=== PATIENT | male | born 1970 | race Caucasian/White ===

== ENCOUNTER → 2018-02-16 | Outpatient (CLI) | payer BC ==
[~2018-02-16] MED LIST: BENICAR; FLEXERIL 1010 MG/TAB PO; LIPITOR 10MG10 MG; LORTAB 5/500 501 TAB; NEXIUM PO; NIASPAN 500MG500 MG; PERCOCET 325 MG1 TA2 PO; ROBAXIN500 MG PO; ZYLOPRIM 100MG100 MG PO
== END ==
LOC: COL.VAS 10:34
DX: E04.9 Nontoxic goiter, unspecified (principal); R42 Dizziness and giddiness

== ENCOUNTER → 2018-07-18 | Outpatient (CLI) | payer BC | LOC: COL.RAD 11:41 | DX: E07.89 Other specified disorders of thyroid (principal); R13.19 Other dysphagia; Z90.89 Acquired absence of other organs ==

== ENCOUNTER 2021-02-19 11:15 | Emergency (ER) | payer BC ==
[~2021-02-19] VITALS: Ht 185.4 cm; Wt 120.5 kg
[2021-02-19 12:31] LABS: BASO % 0.2 % (0.0-2.0); EOS % 0.5 % (0.0-4.0); GRAN # 2.6 K/mm3 (1.4-6.5); GRAN % 65.3 % (42.2-75.2); HEMATOCRIT 39.7 % (42.0-52.0); HEMOGLOBIN 12.9 g/dl (13.5-18.0); LYMPH # 1.1 K/mm3 (1.2-3.4); LYMPH % 25.9 % (20.0-51.0); MEAN CELL VOLUME 81 fl (80.0-100.0); MEAN CORPUSCULAR HEMOGLOBIN 26 pg (27-31); MEAN CORPUSCULAR HGB CONC 33 g/dl (33.0-37.0); MEAN PLATELET VOLUME 10.3 fl (7.4-10.4); MONO # 0.3 K/mm3 (0.1-0.6); MONO % 7.9 % (1.7-9.3); PLATELET COUNT 123 K/mm3 (130-400); RED BLOOD COUNT 4.93 M/mm3 (4.20-5.60); REDCELL DISTRIBUTION WIDTH-CV 13.1 % (11.5-14.5)
[2021-02-19 12:42] LABS: ALBUMIN 3.7 gm/dL (3.5-5.0); BILIRUBIN,TOTAL 0.5 mg/dL (0.2-1.2); CALCIUM 9.1 mg/dL (8.4-10.2); CREATININE, serum 0.93 mg/dL (0.72-1.25); POTASSIUM 3.9 mmol/L (3.5-4.5); TOTAL PROTEIN 7.3 gm/dL (6.2-8.1)
[2021-02-19 15:20] VITALS: BP 129/88; PULSE 99
== END 2021-02-19 15:30 | disposition home or self-care (01) ==
LOC: COL.ER 11:15
PROVIDERS: Nurse Practitioner Family
DX: U07.1 COVID-19 (principal); J12.82 Pneumonia due to coronavirus disease 2019; I10 Essential (primary) hypertension; E78.5 Hyperlipidemia, unspecified; K21.9 Gastro-esophageal reflux disease without esophagitis; F17.220 Nicotine dependence, chewing tobacco, uncomplicated; Z79.899 Other long term (current) drug therapy
CPT/HCPCS: J7030; Q9967

== ENCOUNTER 2022-03-27 05:51 | Day surgery (SDC) | payer BC ==
[~2022-03-27] VITALS: Ht 185.4 cm; Wt 120.0 kg
[2022-03-27 06:30] VITALS: BP 129/92; PULSE 73; TEMP 98.4
[2022-03-27] MEDS ORDERED: NEXIUM 40MG40 MG PO (06:47)
[2022-03-27] MEDS ORDERED: BENICAR40 MG PO (06:47)
[2022-03-27] MEDS ORDERED: ULORIC40 MG PO (06:48)
[2022-03-27] MEDS ORDERED: BYSTOLIC10 MG PO (06:49)
[2022-03-27] MEDS ORDERED: LIPITOR20 MG PO (06:49)
[2022-03-27] MEDS ORDERED: NORVASC 10MG10 MG PO (06:51)
[2022-03-27 07:40] VITALS: BP 108/73; PULSE 68; TEMP 97.4
[2022-03-27 07:55] VITALS: BP 117/76; PULSE 67
[2022-03-27 08:05] VITALS: BP 116/74; PULSE 69
--- NOTE | 2022-03-27 14:17 | NUR ---
0740 PT BACK FROM ENDO SUITE TO [facility] S/P COLONOSCOPY. L&OX4, NAD, DENIES COMPLAINT. AMBUALTED TO CHAIR STEADILY WITH 2 PERSON ASSIST. PLACED ON MONITOR, VSS ON RA. WARM BLANKETS REFRESHED. RECEIVED REPORT AND ASSUMED CARE OF PT FROM ENDO RN. SPOUSE IN ROOM. 0750 PROVIDED SODA AND CRACKERS REQUESTED, TOLERATING WELL. A&O, NAD, VSS ON RA, CONTINUES TO DENY COMPLAINT OR NEED AT THIS TIME. 0805 PT REMAINS STABLE NOTED ABOVE. IV D/C'D, D/C INSTRUCTIONS REVIEWED WITH PT/SPOUSE AND HANDED TO SAME. PT GETTING CHANGED INTO STREET [facility] 0810 DR LUGO IN TO SPEAK WITH PT 0815 TAKEN TO ADMISSIONS ENTRANCE VIA W/C WITH ALL PAPERWORK AND BELONGINGS IN HAND. REMAINS STABLE NOTED ABOVE. SPOUSE TO DRIVE HOME
== END 2022-03-27 08:15 | disposition home or self-care (01) ==
LOC: SDCO 05:51
DX: Z12.11 Encounter for screening for malignant neoplasm of colon (principal); D12.3 Benign neoplasm of transverse colon; D12.5 Benign neoplasm of sigmoid colon; G47.33 Obstructive sleep apnea (adult) (pediatric); F17.290 Nicotine dependence, other tobacco product, uncomplicated; K21.9 Gastro-esophageal reflux disease without esophagitis
CPT/HCPCS: J2704; J3010; J7120